=== PATIENT | male | born 1940 | race Caucasian/White ===

== ENCOUNTER → 2016-11-08 | Outpatient (CLI) | payer MEDICARE, OTHER ==
[2016-11-08 16:34] LABS: Basophils # (auto) 0 uL; Basophils % (auto) 0.3 % (0.0-2.0); Eosinophils # (auto) 0.2 uL; Hematocrit 38.8 % (41.0-53.0); Hemoglobin 12.9 g/dL (13.5-17.5); Lymphocytes # (auto) 1.2 uL; Lymphocytes % (auto) 22.3 % (10.0-50.0); Mean Corpuscular Hemoglobin 30.7 pg (28.0-32.0); Mean Corpuscular Hgb Conc. 33.2 g/dL (32.0-36.0); Mean Corpuscular Volume 92.3 fL (80.0-100.0); Mean Platelet Volume 10.4 fL (7.4-10.4); Monocytes # (auto) 0.7 uL; Monocytes % (auto) 12.6 % (0.0-12.0); Neutrophils # (auto) 3.3 uL; Neutrophils % (auto) 61.8 % (37.0-80.0); Platelet Count (auto) 221 10^3/uL (140-450); Red Cell Distribution Width 15.3 % (11.6-16.0); White Blood Cell 5.3 10^3/uL (4.4-10.8)
== END | disposition home or self-care (01) ==
LOC: LAB 14:40
PROVIDERS: ATTEND Internal Medicine Cardiovascular Disease
DX: D64.9 Anemia, unspecified (principal)
CPT/HCPCS: 36415; 85025

== ENCOUNTER → 2017-04-27 | Outpatient (CLI) | payer BC ==
[~2017-04-27] MED LIST: IOHEXOL 350 MG/ML 100ML IJ ONE
[2017-04-27 10:05] VITALS: BP 161/71
[2017-04-27 10:40] VITALS: BP 158/73
== END | disposition home or self-care (01) ==
LOC: Rad HDHVI 09:15
PROVIDERS: ATTEND Internal Medicine Cardiovascular Disease
DX: K92.2 Gastrointestinal hemorrhage, unspecified (principal)
CPT/HCPCS: 82565; G0463; Q9967; 96374

== ENCOUNTER → 2017-05-18 | Outpatient (CLI) | payer BC, OTHER | END | disposition home or self-care (01) | LOC: Rad HDHVI 13:46 | PROVIDERS: ATTEND Internal Medicine Cardiovascular Disease | DX: R07.89 Other chest pain (principal) | CPT/HCPCS: 93306 ==

== ENCOUNTER → 2017-05-20 | Outpatient (CLI) | payer OTHER ==
[~2017-05-20] VITALS: Ht 174 cm; Wt 83.5 kg
== END | disposition home or self-care (01) ==
LOC: Rad HDHVI 08:53
PROVIDERS: ATTEND Internal Medicine Cardiovascular Disease
DX: D41.4 Neoplasm of uncertain behavior of bladder (principal); R07.89 Other chest pain; R31.9 Hematuria, unspecified
CPT/HCPCS: 78452; 93017; 96374; A9500

== ENCOUNTER 2018-10-24 20:40 | Emergency (ER) | payer OTHER ==
[~2018-10-24] VITALS: Ht 172.7 cm; Wt 80.7 kg
[2018-10-24 21:30] LABS: Basophils # (auto) 0 uL; Basophils % (auto) 0.3 % (0.0-2.0); Eosinophils # (auto) 0.1 uL; Eosinophils % (auto) 1.5 % (0.0-7.0); Hematocrit 44.8 % (41.0-53.0); Hemoglobin 15.2 g/dL (13.5-17.5); Lymphocytes # (auto) 1.4 uL; Mean Corpuscular Hemoglobin 30.6 pg (28.0-32.0); Mean Corpuscular Hgb Conc. 33.9 g/dL (32.0-36.0); Mean Corpuscular Volume 90.3 fL (80.0-100.0); Monocytes # (auto) 0.8 uL; Monocytes % (auto) 9.6 % (0.0-12.0); Neutrophils # (auto) 6.4 uL; Neutrophils % (auto) 72.6 % (37.0-80.0); Nucleated Red Blood Cells % 0.1 %; Platelet Count (auto) 227 10^3/uL (140-450); Red Blood Cells 4.96 10^6/uL (4.5-5.90); Red Cell Distribution Width 13.6 % (11.8-14.3); White Blood Cell 8.8 10^3/uL (4.4-10.8)
[2018-10-24 21:54] LABS: INR 0.92 (0.9-1.15); Partial Thromboplastin Time 27.4 sec (23.78-33.04); Prothrombin Time 9.9 sec (9.27-12.13)
[2018-10-24 22:24] LABS: Urine Bacteria NONE SEEN /hpf (None Seen); Urine Blood 3+ /uL (Negative); Urine Specific Gravity 1.017 (1.001-1.035); Urine Sperm PRESENT /hpf (None Seen); Urine WBC 5 /hpf (0 - 3)
[2018-10-25 03:26] VITALS: BP 124/71
== END 2018-10-25 04:31 | disposition home or self-care (01) ==
LOC: ER 20:42
DX: R31.9 Hematuria, unspecified (principal); I10 Essential (primary) hypertension
CPT/HCPCS: 36415; 81001; 85025; 85610; 85730

== ENCOUNTER → 2019-06-19 | Outpatient (CLI) | payer OTHER ==
[2019-06-19 15:42] LABS: Basophils # (auto) 0 uL; Basophils % (auto) 0.4 % (0.0-2.0); Eosinophils # (auto) 0.3 uL; Eosinophils % (auto) 4.2 % (0.0-7.0); Hematocrit 44.5 % (41.0-53.0); Hemoglobin 15.2 g/dL (13.5-17.5); Lymphocytes # (auto) 1.3 uL; Lymphocytes % (auto) 21.1 % (10.0-50.0); Mean Corpuscular Hemoglobin 30.9 pg (28.0-32.0); Mean Corpuscular Hgb Conc. 34.2 g/dL (32.0-36.0); Mean Corpuscular Volume 90.6 fL (80.0-100.0); Monocytes # (auto) 0.6 uL; Monocytes % (auto) 10.1 % (0.0-12.0); Neutrophils # (auto) 3.9 uL; Neutrophils % (auto) 64.2 % (37.0-80.0); Nucleated Red Blood Cells % 0.1 %; Platelet Count (auto) 212 10^3/uL (140-450); Red Blood Cells 4.91 10^6/uL (4.5-5.90); Red Cell Distribution Width 13.3 % (11.8-14.3); White Blood Cell 6.1 10^3/uL (4.4-10.8)
[2019-06-19 15:44] LABS: Urine Blood Negative /uL (Negative); Urine Specific Gravity 1.018 (1.001-1.035)
[2019-06-19 15:56] LABS: BUN/Creatinine Ratio 20.4; Calcium 8.1 mg/dL (8.5-10.1); Potassium 3.8 mmol/L (3.5-5.1)
== END | disposition home or self-care (01) ==
LOC: Rad HDHVI 13:50
PROVIDERS: ATTEND Internal Medicine Cardiovascular Disease
DX: Z01.812 Encounter for preprocedural laboratory examination (principal); I25.10 Atherosclerotic heart disease of native coronary artery without angina pectoris; M47.814 Spondylosis without myelopathy or radiculopathy, thoracic region; M79.89 Other specified soft tissue disorders; N39.0 Urinary tract infection, site not specified; D53.8 Other specified nutritional anemias
CPT/HCPCS: 36415; 71046; 80048; 81003; 85025; 87086; 87088; 87186; 93306

== ENCOUNTER → 2019-06-20 | Outpatient (CLI) | payer OTHER ==
[2019-06-20 16:53] LABS: INR 0.97 (0.9-1.15); Partial Thromboplastin Time 26.9 sec (23.64-32.05)
== END | disposition home or self-care (01) ==
LOC: LAB 13:42
PROVIDERS: ATTEND Internal Medicine Cardiovascular Disease
DX: R79.1 Abnormal coagulation profile (principal); I10 Essential (primary) hypertension
CPT/HCPCS: 36415; 85610; 85730

== ENCOUNTER → 2019-07-27 | Outpatient (CLI) | payer OTHER ==
[~2019-07-27] MED LIST changes: -IOHEXOL 350 MG/ML 100ML IJ ONE; +READI-CAT 2 (BARIUM SULF)(VANILLA SMOOTHIE) 450ML ONE; +SODIUM CHLORIDE 0.9% 500 ML IV ONE
[2019-07-27 11:28] VITALS: BP 112/62
--- NOTE | 2019-07-27 11:30 | NUR ---
IV insertion IV access obtained by Teresa AGUILAR, via clean sterile technique by inserting 22 gauge catheter at [facility] after 1 attempt(s). IV secured properly. No trauma to site. Patient tolerated procedure well.
[2019-07-27 12:25] LABS: Basophils # (auto) 0 uL; Basophils % (auto) 0.2 % (0.0-2.0); Eosinophils # (auto) 0 uL; Eosinophils % (auto) 0.4 % (0.0-7.0); Hematocrit 40.2 % (41.0-53.0); Hemoglobin 13.9 g/dL (13.5-17.5); Lymphocytes # (auto) 0.7 uL; Lymphocytes % (auto) 5.1 % (10.0-50.0); Mean Corpuscular Hemoglobin 30.7 pg (28.0-32.0); Mean Corpuscular Hgb Conc. 34.6 g/dL (32.0-36.0); Mean Corpuscular Volume 88.9 fL (80.0-100.0); Monocytes # (auto) 0.9 uL; Monocytes % (auto) 6.4 % (0.0-12.0); Neutrophils # (auto) 11.9 uL; Neutrophils % (auto) 87.9 % (37.0-80.0); Platelet Count (auto) 380 10^3/uL (140-450); Red Blood Cells 4.52 10^6/uL (4.5-5.90); Red Cell Distribution Width 13.2 % (11.8-14.3); White Blood Cell 13.6 10^3/uL (4.4-10.8)
[2019-07-27 12:43] LABS: Albumin 2.6 g/dL (3.4-5.0); Calcium 8.9 mg/dL (8.5-10.1); Potassium 3.9 mmol/L (3.5-5.1)
[2019-07-27 12:53] LABS: BUN/Creatinine Ratio 13.3; Bilirubin, Total 0.3 mg/dL (0.2-1.0); Total Protein 7.3 g/dL (6.4-8.2)
--- NOTE | 2019-07-27 14:23 | NUR ---
IV removal IV DC'd with sterile technique, catheter fully intact. Pressure dressing applied to site. Patient tolerated procedure well.
[2019-07-27 14:25] VITALS: BP 111/62
--- NOTE | 2019-07-27 14:25 | NUR ---
[facility] Discharge Instructions See e-MAR for any mediations given with this visit. Patient education given on disease process. Patient verbalized understanding. Previous labs reviewed. Patient discharged in stable condition with after care instructions and follow up appointment. NOTE NS [id number], [id number] ADMIN BY VALERI AGUILAR. PATIENT EDUCATED TO DRINK PLENTY OF FLUID FOLLOWING IV CONTRAST, PT VERBALIZED UNDERSTANDING.
== END | disposition home or self-care (01) ==
LOC: Rad HDHVI 11:21
PROVIDERS: ATTEND Internal Medicine Cardiovascular Disease
DX: K57.30 Diverticulosis of large intestine without perforation or abscess without bleeding (principal); D64.9 Anemia, unspecified; R10.9 Unspecified abdominal pain; I25.10 Atherosclerotic heart disease of native coronary artery without angina pectoris; I70.0 Atherosclerosis of aorta; R79.0 Abnormal level of blood mineral; I10 Essential (primary) hypertension; Z85.51 Personal history of malignant neoplasm of bladder
CPT/HCPCS: 36415; 74177; 80053; 85025; G0463; J7040; 96360

== ENCOUNTER → 2019-10-09 | Outpatient (CLI) | payer OTHER ==
[2019-10-09 12:10] LABS: Potassium 4.8 mmol/L (3.5-5.1)
[2019-10-09 12:18] LABS: BUN/Creatinine Ratio 21.6; Calcium 8.8 mg/dL (8.5-10.1)
== END | disposition home or self-care (01) ==
LOC: LAB 10:48
PROVIDERS: ATTEND Internal Medicine Cardiovascular Disease
DX: I10 Essential (primary) hypertension (principal)
CPT/HCPCS: 36415; 80048

== ENCOUNTER → 2021-01-28 | Outpatient (CLI) | payer OTHER ==
[2021-01-28 11:51] LABS: Urine Blood Negative /uL (Negative); Urine Specific Gravity 1.019 (1.001-1.035)
[2021-01-28 12:04] LABS: Albumin 3.4 g/dL (3.4-5.0); Calcium 8.8 mg/dL (8.5-10.1); Potassium 4.1 mmol/L (3.5-5.1)
[2021-01-28 12:08] LABS: Basophils # (auto) 0 10 ^3/uL (0-0.2); Basophils % (auto) 0.4 % (0.0-2.0); Eosinophils # (auto) 0.1 10 ^3/uL (0-0.8); Eosinophils % (auto) 2.7 % (0.0-7.0); Hematocrit 42.3 % (41.0-53.0); Hemoglobin 14.2 g/dL (13.5-17.5); Lymphocytes % (auto) 20.2 % (10.0-50.0); Mean Corpuscular Hemoglobin 30.5 pg (28.0-32.0); Mean Corpuscular Hgb Conc. 33.7 g/dL (32.0-36.0); Mean Corpuscular Volume 90.5 fL (80.0-100.0); Monocytes # (auto) 0.5 10 ^3/uL (0-1.3); Monocytes % (auto) 10.8 % (0.0-12.0); Neutrophils # (auto) 3.3 10 ^3/uL (1.6-8.6); Neutrophils % (auto) 65.9 % (37.0-80.0); Nucleated Red Blood Cells % 0.1 %; Platelet Count (auto) 195 10^3/uL (140-450); Red Blood Cells 4.67 10^6/uL (4.5-5.90); Red Cell Distribution Width 13.7 % (11.8-14.3)
[2021-01-28 12:09] LABS: BUN/Creatinine Ratio 18.5; Bilirubin, Total 0.7 mg/dL (0.2-1.0)
[2021-01-28 12:20] LABS: Free T4 (Free Thyroxine) 1.05 ng/dL (0.89-1.76); Prostate Specific Antigen 3.85 ng/mL (0.0-4.0)
== END | disposition home or self-care (01) ==
LOC: LAB 07:57
PROVIDERS: ATTEND Internal Medicine
DX: C61 Malignant neoplasm of prostate (principal); D51.3 Other dietary vitamin B12 deficiency anemia; I10 Essential (primary) hypertension; E11.9 Type 2 diabetes mellitus without complications; E55.9 Vitamin D deficiency, unspecified; D64.9 Anemia, unspecified; R00.2 Palpitations; R53.1 Weakness; R30.0 Dysuria
CPT/HCPCS: 36415; 80053; 80061; 81003; 82306; 82607; 83036; 84153; 84403; 84439; 84443; 85025; 85049

== ENCOUNTER → 2021-07-16 | Outpatient (CLI) | payer OTHER | END | disposition home or self-care (01) | LOC: Rad HDHVI 08:54 | PROVIDERS: ATTEND Internal Medicine Cardiovascular Disease | DX: E78.5 Hyperlipidemia, unspecified (principal); R06.02 Shortness of breath | CPT/HCPCS: 93306 ==

== ENCOUNTER → 2021-07-22 | Outpatient (CLI) | payer OTHER ==
[~2021-07-22] VITALS: Ht 175.3 cm; Wt 85.7 kg
== END | disposition home or self-care (01) ==
LOC: Rad HDHVI 12:45
PROVIDERS: ATTEND Internal Medicine Cardiovascular Disease
DX: I10 Essential (primary) hypertension (principal); E11.9 Type 2 diabetes mellitus without complications; Z82.49 Family history of ischemic heart disease and other diseases of the circulatory system
CPT/HCPCS: 78452; 93017; 96374; A9500

== ENCOUNTER → 2022-04-13 | Outpatient (CLI) | payer OTHER ==
[2022-04-13 12:27] LABS: Urine Blood Negative /uL (Negative); Urine Specific Gravity 1.012 (1.001-1.035)
== END | disposition home or self-care (01) ==
LOC: LAB 10:31
PROVIDERS: ATTEND Internal Medicine
DX: N39.0 Urinary tract infection, site not specified (principal)
CPT/HCPCS: 81003; 87086

== ENCOUNTER → 2022-06-09 | Outpatient (CLI) | payer OTHER ==
[~2022-06-09] MED LIST changes: +ALPR0.25 PO; +AZIL40TA3 PO; -READI-CAT 2 (BARIUM SULF)(VANILLA SMOOTHIE) 450ML ONE; -SODIUM CHLORIDE 0.9% 500 ML IV ONE
[2022-06-09 14:15] VITALS: BP 109/75
[2022-06-09 14:30] VITALS: BP 131/70
[2022-06-09 17:06] LABS: Basophils # (auto) 0 10 ^3/uL (0-0.2); Basophils % (auto) 0.3 % (0.0-2.0); Eosinophils # (auto) 0.1 10 ^3/uL (0-0.8); Eosinophils % (auto) 1.5 % (0.0-7.0); Hematocrit 44.5 % (41.0-53.0); Hemoglobin 15.4 g/dL (13.5-17.5); Lymphocytes # (auto) 1.3 10 ^3/uL (0.4-5.4); Lymphocytes % (auto) 16.2 % (10.0-50.0); Mean Corpuscular Hemoglobin 30.9 pg (28.0-32.0); Mean Corpuscular Hgb Conc. 34.5 g/dL (32.0-36.0); Mean Corpuscular Volume 89.6 fL (80.0-100.0); Monocytes # (auto) 0.9 10 ^3/uL (0-1.3); Monocytes % (auto) 11.1 % (0.0-12.0); Neutrophils # (auto) 5.8 10 ^3/uL (1.6-8.6); Neutrophils % (auto) 70.9 % (37.0-80.0); Nucleated Red Blood Cells % 0.1 %; Red Blood Cells 4.97 10^6/uL (4.5-5.90); Red Cell Distribution Width 13.7 % (11.8-14.3); White Blood Cell 8.2 10^3/uL (4.4-10.8)
[2022-06-09 17:13] LABS: BUN/Creatinine Ratio 20.8; Calcium 9.1 mg/dL (8.5-10.1); Potassium 3.7 mmol/L (3.5-5.1)
[2022-06-09 17:20] LABS: INR 0.96 (0.9-1.15); Partial Thromboplastin Time 30.5 sec (24.6-33.4)
== END | disposition home or self-care (01) ==
LOC: Rad HDHVI 14:02
PROVIDERS: ATTEND Internal Medicine Cardiovascular Disease
DX: R94.31 Abnormal electrocardiogram [ECG] [EKG] (principal); R79.1 Abnormal coagulation profile; I25.10 Atherosclerotic heart disease of native coronary artery without angina pectoris; R42 Dizziness and giddiness; R00.2 Palpitations; R00.1 Bradycardia, unspecified; M47.814 Spondylosis without myelopathy or radiculopathy, thoracic region; Z01.818 Encounter for other preprocedural examination
CPT/HCPCS: 36415; 71046; 80048; 85025; 85610; 85730; 93005; G0463

== ENCOUNTER 2022-06-11 10:48 | Day surgery (SDC) | payer OTHER ==
[~2022-06-11] VITALS: Ht 172.7 cm; Wt 78.9 kg
[2022-06-11] MEDS ORDERED: VANCOMYCIN 1GM/250ML 250 ML IV ONE ×2 (12:44→12:45)
[2022-06-11] MEDS ORDERED: VANCOMYCIN HCL 1000 MG VL ONE (12:53)
[2022-06-11] MEDS ORDERED: LIDOCAINE 2%HCL (LOCAL ANESTH.) INJ 20ML MDV ONE (12:54)
[2022-06-11] MEDS ORDERED: fentaNYL CITRATE 100 MCG/2 ML VL ONE (12:54)
[2022-06-11] MEDS ORDERED: MIDAZOLAM HCL 2MG/2ML 2ml VIAL (1mg/ml) ONE (12:54)
[2022-06-11 14:55] VITALS: BP 111/79
[2022-06-11] MEDS ORDERED: HYDROcodone-ACET 5/325MG TAB PO PRN (15:45)
[2022-06-11] MEDS ORDERED: ONDANSETRON HCL 4 MG/2 ML VIAL IV PRN (15:45)
[2022-06-11] MEDS ORDERED: ACETAMINOPHEN 500 MG TAB PO PRN (15:45)
[2022-06-11] MEDS ORDERED: HYDROcodone-ACET 5/325MG TAB ONE (15:53)
[2022-06-11] MEDS ORDERED: SODIUM CHLOR 0.9% PF (SALINE LOCK) 10ML VIAL/SYR IV SCH (22:00)
== END 2022-06-11 16:45 | disposition home or self-care (01) ==
LOC: CATH 10:48
PROVIDERS: ATTEND Internal Medicine Cardiovascular Disease
DX: I49.5 Sick sinus syndrome (principal); R55 Syncope and collapse; I10 Essential (primary) hypertension; Z79.899 Other long term (current) drug therapy; Z20.822 Contact with and (suspected) exposure to COVID-19
CPT/HCPCS: 33208; 71045; 93005; C1769; C1785; C1892; C1898; J2250; J3010; J3370; U0003; 99152

== ENCOUNTER → 2022-06-14 | Outpatient (CLI) | payer OTHER | END | disposition home or self-care (01) | LOC: Rad HDHVI 14:09 | PROVIDERS: ATTEND Internal Medicine Cardiovascular Disease | DX: I70.0 Atherosclerosis of aorta (principal); M47.814 Spondylosis without myelopathy or radiculopathy, thoracic region | CPT/HCPCS: 71046 ==

== ENCOUNTER → 2022-12-15 | Outpatient (CLI) | payer OTHER | END | disposition home or self-care (01) | LOC: Rad HDHVI 12:55 | PROVIDERS: ATTEND Internal Medicine Cardiovascular Disease | DX: I08.2 Rheumatic disorders of both aortic and tricuspid valves (principal); R06.02 Shortness of breath; I11.9 Hypertensive heart disease without heart failure; Z95.0 Presence of cardiac pacemaker | CPT/HCPCS: 93306 ==

== ENCOUNTER → 2023-01-07 | Outpatient (CLI) | payer OTHER ==
[~2023-01-07] VITALS: Ht 172.7 cm; Wt 81.2 kg
== END | disposition home or self-care (01) ==
LOC: Rad HDHVI 08:40
PROVIDERS: ATTEND Internal Medicine Cardiovascular Disease
DX: I11.0 Hypertensive heart disease with heart failure (principal); I50.33 Acute on chronic diastolic (congestive) heart failure; I49.5 Sick sinus syndrome; R06.02 Shortness of breath; I48.0 Paroxysmal atrial fibrillation; E78.00 Pure hypercholesterolemia, unspecified; Z95.0 Presence of cardiac pacemaker; Z82.49 Family history of ischemic heart disease and other diseases of the circulatory system
CPT/HCPCS: 78452; 93017; 96374; A9500

== ENCOUNTER → 2024-07-23 | Outpatient (CLI) | payer OTHER | END | disposition home or self-care (01) | LOC: Rad HDHVI 08:52 | PROVIDERS: ATTEND Internal Medicine Cardiovascular Disease | DX: I11.0 Hypertensive heart disease with heart failure (principal); I50.33 Acute on chronic diastolic (congestive) heart failure | CPT/HCPCS: 93880 ==

== ENCOUNTER → 2024-07-24 | Outpatient (CLI) | payer OTHER | END | disposition home or self-care (01) | LOC: Rad HDHVI 08:44 | PROVIDERS: ATTEND Internal Medicine Cardiovascular Disease | DX: I11.0 Hypertensive heart disease with heart failure (principal); I50.33 Acute on chronic diastolic (congestive) heart failure | CPT/HCPCS: 93306 ==